=== PATIENT | male | born 1965 | race Two or more races ===

== ENCOUNTER 2017-12-28 23:52 | Emergency (ER) | payer MEDICAID ==
[~2017-12-28] VITALS: Ht 152.4 cm; Wt 136.1 kg
[2017-12-29 00:18] VITALS: BP 171/84
[2017-12-29] MEDS ORDERED: IBUPROFEN 800 MG TAB PO ONE ×2 (02:45→02:46)
[2017-12-29] MEDS ORDERED: DEXAMETHASONE SOD PHOS 10MG/1ML VIAL INJ IM ONE (04:15)
[2017-12-29] MEDS ORDERED: KETOROLAC TROMETH 60MG/2ML VIAL IM ONE (04:15)
== END 2017-12-29 04:35 | disposition home or self-care (01) ==
LOC: ER 23:52
DX: S62.611A Displaced fracture of proximal phalanx of left index finger, initial encounter for closed fracture (principal); E11.9 Type 2 diabetes mellitus without complications; I10 Essential (primary) hypertension; Z86.73 Personal history of transient ischemic attack (TIA), and cerebral infarction without residual deficits; V49.49XA Driver injured in collision with other motor vehicles in traffic accident, initial encounter; Y93.89 Activity, other specified; Y99.8 Other external cause status; Y92.488 Other paved roadways as the place of occurrence of the external cause
CPT/HCPCS: 29125; 72100; 73030; 73130; 96372; 99284; J1100; J1885; 29130